=== PATIENT | female | born 1990 | race Caucasian/White ===

== ENCOUNTER 2017-05-08 10:45 | Emergency (ER) | payer SELFPAY ==
[~2017-05-08] VITALS: Ht 160 cm; Wt 70.4 kg
[~2017-05-08 10:45] MED LIST: DEXT15SY3
[2017-05-08 11:01] VITALS: BP 103/60
[2017-05-08] MEDS ORDERED: CefTRIAXone SODIUM 1 GM/VIAL IM ONE (12:15)
[2017-05-08] MEDS ORDERED: ONDANSETRON HCL 4 MG TABLET PO ONE (12:15)
[2017-05-08] MEDS ORDERED: LIDOCAINE HCL/PF 1% 2 ML VIAL IM ONE (12:15)
[2017-05-08] MEDS ORDERED: KETOROLAC TROMETHAMINE 30 MG/ML VIAL IM ONE (12:30)
== END 2017-05-08 12:53 | disposition home or self-care (01) ==
LOC: EMS 10:47
DX: J03.80 Acute tonsillitis due to other specified organisms (principal); Z88.2 Allergy status to sulfonamides
CPT/HCPCS: 96372; 99284; J0696; J1885; J3490; Q0162

== ENCOUNTER 2018-06-09 13:30 | Emergency (ER) | payer MEDICAID ==
[~2018-06-09] VITALS: Ht 157.5 cm; Wt 81.8 kg
[2018-06-09] MEDS ORDERED: KETOROLAC TROMETHAMINE 30 MG/ML VIAL IM ONE (15:30)
[2018-06-09] MEDS ORDERED: CefTRIAXone SODIUM 1 GM in DEXTROSE 5%-WATER 10 ML IV ONE (15:45)
[2018-06-09] MEDS ORDERED: AZITHROMYCIN 250 MG TABLET PO ONE (15:45)
[2018-06-09 15:53] LABS: BASOPHILS % (AUTO) 1.1 % (0.0-2.0); EOSINOPHILS % (AUTO) 6.5 % (1.0-6.0); HEMATOCRIT 37.6 % (36-46); HEMOGLOBIN 12.6 g/dL (12.0-16.0); LYMPHOCYTES % (AUTO) 15.5 % (22.0-44.0); MEAN CORPUSCULAR HEMOGLOBIN 30.7 pg (26.0-34.0); MEAN CORPUSCULAR HGB CONC 33.5 G/dL (31.0-37.0); MEAN CORPUSCULAR VOLUME 92 fL (80-100); MONOCYTES # (AUTO) 0.4 K/uL (0.1-1.0); NEUTROPHILS # (AUTO) 4.5 K/uL (1.8-7.7); NEUTROPHILS % (AUTO) 70.9 % (40.0-70.0); PLATELET COUNT (AUTO) 369 K/uL (150-450); RED BLOOD CELL COUNT(AUTO) 4.11 MIL/uL (4.00-5.20); RED CELL DISTRIBUTION WIDTH 13.4 % (11.5-14.5)
[2018-06-09 16:05] LABS: ANION GAP 5 mmol/L (8-16); CALCIUM, TOTAL 8.4 mg/dL (8.8-10.5); CARBON DIOXIDE 29 mmol/L (22-29); CHLORIDE 103 mmol/L (98-107); CREATININE 0.71 mg/dL (0.60-1.30); GLOMERULAR FILTR. RATE CALC > 60 mL/min (>60); GLUCOSE,RANDOM 102 mg/dL (70-110); POTASSIUM 3.9 mmol/L (3.5-5.1); SODIUM SERUM 137 mmol/L (136-145); UREA NITROGEN, BLOOD 7 mg/dL (7-18)
[2018-06-09 16:11] LABS: ALANINE AMINOTRANSFERASE 468 U/L (12-78); ALBUMIN 2.9 g/dL (3.4-5.0); ALKALINE PHOSPHATASE 328 U/L (46-116); ASPARTATE AMINOTRANSFERASE 178 U/L (15-37); BILIRUBIN,TOTAL 0.4 mg/dL (0.1-1.0); C-REACTIVE PROTEIN QUANT 3.31 mg/dL (0.00-0.30); TOTAL PROTEIN, SERUM 7.7 g/dL (6.4-8.2)
[2018-06-09 16:41] LABS: APPEARANCE,URINE CLOUDY (CLEAR); GLUCOSE, URINE (UA) NEGATIVE (NEGATIVE); KETONES,URINE NEGATIVE (NEGATIVE); LEUKOCYTE ESTERASE ,URINE MODERATE (NEGATIVE); NITRATE,URINE POSITIVE (NEGATIVE); OCCULT BLOOD,URINE TRACE (NEGATIVE); PH,URINE 6.5 (5.0-8.0); PROTEIN,URINE NEGATIVE (NEGATIVE)
[2018-06-09 16:42] LABS: BILIRUBIN,URINE PRELIM. POSITIVE (NEGATIVE)
[2018-06-09 16:45] LABS: SQUAMOUS EPITHELIAL CELL,UR Many /LPF (None Seen)
[2018-06-09 16:47] LABS: RBC,URINE 0-2 /HPF (0-2)
[2018-06-09 16:48] LABS: BACTERIA,URINE Moderate /HPF (None Seen)
[2018-06-09] MEDS ORDERED: PENICILLIN G BENZATHINE LA 2,400,000 UNITS/4 ML SYRINGE IM ONE (18:15)
[2018-06-09] MEDS ORDERED: SODIUM CHLORIDE 0.9% 500 ML IV ONE (18:30)
[2018-06-09 21:04] VITALS: BP 116/58
[2018-06-11 14:24] LABS: HIV 1-2 SCREEN 4TH GEN W/RFLX Non Reactive (Non Reactive)
== END 2018-06-09 21:14 | disposition home or self-care (01) ==
LOC: EMS 13:31
DX: A53.9 Syphilis, unspecified (principal); N39.0 Urinary tract infection, site not specified; L03.031 Cellulitis of right toe; Z72.51 High risk heterosexual behavior; Z88.2 Allergy status to sulfonamides; Z59.0 Homelessness
CPT/HCPCS: 36415; 73630; 80053; 81001; 81025; 85025; 86140; 86592; 86593; 86780; 87070; 87077; 87086; 87186; 87205; 87255; 87389; 87430; 96365; 96366; 96372; 99285; J0561; J0696; J1885; J7040; J7060

== ENCOUNTER 2018-09-29 12:45 | Emergency (ER) | payer SELFPAY ==
[~2018-09-29] VITALS: Ht 160 cm; Wt 77.3 kg
[2018-09-29] MEDS ORDERED: KETOROLAC TROMETHAMINE 30 MG/ML VIAL IM ONE (15:30)
[2018-09-29 17:15] VITALS: BP 127/72
== END 2018-09-29 17:18 | disposition home or self-care (01) ==
LOC: EMS 12:46
DX: H66.91 Otitis media, unspecified, right ear (principal); Z88.2 Allergy status to sulfonamides

== ENCOUNTER 2019-12-03 15:05 | Observation (INO) | payer MEDICAID ==
[~2019-12-03] VITALS: Ht 160 cm; Wt 86.4 kg
[2019-12-03 16:20] VITALS: BP 129/61
[2019-12-03 17:28] LABS: AMPHET/METH SCREEN,URINE NEGATIVE (NEGATIVE); BARBITURATE SCREEN, URINE NEGATIVE (NEGATIVE); BENZODIAZEPINES SCREEN,URINE NEGATIVE (NEGATIVE); CANNABINOID SCREEN,URINE POSITIVE (NEGATIVE); COCAINE SCREEN,URINE NEGATIVE (NEGATIVE); METHADONE SCREEN, URINE NEGATIVE (NEGATIVE); OPIATE SCREEN,URINE NEGATIVE (NEGATIVE)
[2019-12-03 17:29] LABS: PHENCYCLIDINE SCREEN,URINE NEGATIVE (NEGATIVE)
== END 2019-12-03 17:00 | disposition home or self-care (01) ==
LOC: EMS 15:06 → 4S 15:40
PROVIDERS: ADMIT Obstetrics & Gynecology; ATTEND Obstetrics & Gynecology
DX: O26.892 Other specified pregnancy related conditions, second trimester (principal); R10.9 Unspecified abdominal pain; Z3A.27 27 weeks gestation of pregnancy
CPT/HCPCS: 80307 ×8; 81001; 99284; G0378

== ENCOUNTER 2020-01-26 18:20 | Observation (INO) | payer MEDICAID ==
[~2020-01-26] VITALS: Ht 162.6 cm; Wt 91.6 kg
[2020-01-26] MEDS ORDERED: LIDOCAINE/PF 1% 2 ML VIAL IM ONE (19:45)
[2020-01-26] MEDS ORDERED: CefTRIAXone SODIUM 250 MG/VIAL IM ONE (19:45)
[2020-01-26] MEDS ORDERED: AZITHROMYCIN 250 MG TABLET PO ONE (19:45)
[2020-01-26 20:23] VITALS: BP 110/60
== END 2020-01-26 20:23 | disposition home or self-care (01) ==
LOC: 4S 18:20
PROVIDERS: ADMIT Obstetrics & Gynecology; ATTEND Obstetrics & Gynecology
DX: O99.353 Diseases of the nervous system complicating pregnancy, third trimester (principal); F41.9 Anxiety disorder, unspecified; Z3A.35 35 weeks gestation of pregnancy
CPT/HCPCS: 59025; 81001; 96372; G0378; J0696; J3490

== ENCOUNTER 2020-02-21 17:00 | Observation (INO) | payer MEDICAID ==
[~2020-02-21] VITALS: Ht 162.6 cm; Wt 93.4 kg
[2020-02-21 17:04] VITALS: BP 108/61
[2020-02-21] MEDS ORDERED: ACET-66 PO (17:06)
== END 2020-02-21 17:35 | disposition home or self-care (01) ==
LOC: 4S 17:00
PROVIDERS: ADMIT Obstetrics & Gynecology; ATTEND Obstetrics & Gynecology
DX: Z03.818 Encounter for observation for suspected exposure to other biological agents ruled out (principal); Z3A.38 38 weeks gestation of pregnancy; Z98.891 History of uterine scar from previous surgery
CPT/HCPCS: 59025; 81001; 87635; G0378

== ENCOUNTER 2020-02-21 18:02 | Inpatient (IN) | payer MEDICAID ==
[~2020-02-21] VITALS: Ht 160 cm; Wt 93.0 kg
[~2020-02-21 18:02] MED LIST changes: +ACET-66 PO; -DEXT15SY3
[2020-02-25] MEDS ORDERED: RINGERS SOLUTION,LACTATED 1,000 ML IV ONE (10:31)
[2020-02-25] MEDS ORDERED: METHYLERGONOVINE MALEATE 0.2 MG/ML VIAL IM ONE (10:45)
[2020-02-25] MEDS ORDERED: METOCLOPRAMIDE HCL 5 MG/ML 2 ML VIAL IVP ONE (10:45)
[2020-02-25] MEDS ORDERED: CITRIC ACID/SODIUM CITRATE 30 ML SOLUTION UDCUP PO ONE (10:45)
[2020-02-25 10:50] VITALS: BP 127/75
[2020-02-25 11:19] LABS: EOSINOPHILS % (AUTO) 1.2 % (1.0-6.0); HEMATOCRIT 36.8 % (36-46); HEMOGLOBIN 12.3 g/dL (12.0-16.0); LYMPHOCYTES # (AUTO) 1.8 K/uL (1.0-4.8); LYMPHOCYTES % (AUTO) 18.9 % (22.0-44.0); MEAN CORPUSCULAR HEMOGLOBIN 31.1 pg (26.0-34.0); MEAN CORPUSCULAR HGB CONC 33.4 G/dL (31.0-37.0); MEAN CORPUSCULAR VOLUME 93 fL (80-100); MONOCYTES # (AUTO) 0.3 K/uL (0.1-1.0); MONOCYTES % (AUTO) 3.7 % (2.0-9.0); NEUTROPHILS % (AUTO) 75.2 % (40.0-70.0); PLATELET COUNT (AUTO) 322 K/uL (150-450); RED BLOOD CELL COUNT(AUTO) 3.95 MIL/uL (4.00-5.20); RED CELL DISTRIBUTION WIDTH 13.2 % (11.5-14.5)
[2020-02-25] MEDS ORDERED: CeFAZolin 2 GM/DEXTROSE 50 ML IV ONE (11:46)
[2020-02-25] MEDS ORDERED: ACETAMINOPHEN 1000 MG/ISO-OSM 100 ML IV ONE (11:46)
[2020-02-25] MEDS ORDERED: FentaNYL CITRATE-PF 100 MCG/2 ML VIAL ONE (11:46)
[2020-02-25] MEDS ORDERED: MORPHINE SULFATE/PF 0.5 MG/ML 10 ML AMP ONE (11:46)
[2020-02-25] MEDS ORDERED: PHENYLEPHRINE HCL 10 MG/ML VIAL IVP ONE (12:00)
[2020-02-25] MEDS ORDERED: DEXAMETHASONE SOD PHOS 4 MG/ML VIAL IVP ONE (12:00)
[2020-02-25] MEDS ORDERED: ONDANSETRON HCL 4 MG/2 ML VIAL IVP ONE (12:00)
[2020-02-25] MEDS ORDERED: OXYTOCIN 10 UNITS/ML VIAL IM ONE (12:00)
[2020-02-25] MEDS ORDERED: KETOROLAC TROMETHAMINE 60 MG/2 ML VIAL IM ONE (12:00)
[2020-02-25] MEDS ORDERED: NALBUPHINE HCL 10 MG/ML VIAL IVP PRN ×3 (12:30)
[2020-02-25] MEDS ORDERED: MORPHINE SULFATE 10 MG/ML SYRINGE IVP PRN (12:30)
[2020-02-25] MEDS ORDERED: MEPERIDINE-PF 25 MG/ML VIAL IVP PRN (12:30)
[2020-02-25] MEDS ORDERED: NALOXONE HCL 0.4 MG/ML VIAL IVP PRN (12:30)
[2020-02-25] MEDS ORDERED: FentaNYL CITRATE-PF 100 MCG/2 ML VIAL IVP PRN ×2 (12:30)
[2020-02-25] MEDS ORDERED: ONDANSETRON HCL 4 MG/2 ML VIAL IVP PRN ×2 (12:30)
[2020-02-25] MEDS ORDERED: DiphenhydrAMINE HCL 50 MG/ML VIAL IVP PRN ×2 (12:30)
[2020-02-25] MEDS ORDERED: OXYTOCIN 30 UNITS/LACT RINGERS 500 ML IV ONE (12:58)
[2020-02-25] MEDS ORDERED: OxyCODONE HCL/ACETAMINOPHEN 5-325 MG TABLET PO PRN ×2 (13:00)
[2020-02-25] MEDS ORDERED: LANOLIN 7 GM OINTMENT TP PRN (13:00)
[2020-02-25] MEDS: RINGERS SOLUTION,LACTATED 1,000 ML IV SCH ×2 (14:19→20:28)
[2020-02-25] MEDS ORDERED: OXYGEN THERAPY IH SCH ×3 (20:00)
[2020-02-25] MEDS: KETOROLAC TROMETHAMINE 30 MG/ML VIAL IVP SCH (20:25)
[2020-02-25] MEDS: ACETAMINOPHEN 1000 MG/ISO-OSM 100 ML IV SCH (20:29)
[2020-02-26] MEDS: KETOROLAC TROMETHAMINE 30 MG/ML VIAL IVP SCH (02:04)
[2020-02-26] MEDS ORDERED: ACETAMINOPHEN 1000 MG/ISO-OSM 100 ML IV ONE (04:58)
[2020-02-26] MEDS: ACETAMINOPHEN 1000 MG/ISO-OSM 100 ML IV SCH (05:05)
[2020-02-26] MEDS ORDERED: INFLUENZA VIRUS VACCINE QVS 2019-20 (3YR+)/PF 60 MCG/0.5 ML SYRINGE IM ONE (07:00)
[2020-02-26 07:19] LABS: BASOPHILS % (AUTO) 0.4 % (0.0-2.0); EOSINOPHILS % (AUTO) 0.3 % (1.0-6.0); HEMATOCRIT 33.8 % (36-46); HEMOGLOBIN 11.2 g/dL (12.0-16.0); LYMPHOCYTES # (AUTO) 2.9 K/uL (1.0-4.8); LYMPHOCYTES % (AUTO) 18.5 % (22.0-44.0); MEAN CORPUSCULAR HEMOGLOBIN 31.1 pg (26.0-34.0); MEAN CORPUSCULAR HGB CONC 33.2 G/dL (31.0-37.0); MEAN CORPUSCULAR VOLUME 94 fL (80-100); MONOCYTES # (AUTO) 0.6 K/uL (0.1-1.0); MONOCYTES % (AUTO) 3.9 % (2.0-9.0); NEUTROPHILS # (AUTO) 12.3 K/uL (1.8-7.7); NEUTROPHILS % (AUTO) 76.9 % (40.0-70.0); PLATELET COUNT (AUTO)-OB 322 K/uL (150-450); RED BLOOD CELL COUNT(AUTO) 3.61 MIL/uL (4.00-5.20); RED CELL DISTRIBUTION WIDTH 13.3 % (11.5-14.5)
[2020-02-26] MEDS: MAGNESIUM HYDROXIDE SUSPENSION 30 ML UDCUP PO SCH ×2 (11:20→21:10)
[2020-02-27] MEDS: IBUPROFEN 800 MG TABLET PO PRN ×2 (02:11→09:46)
[2020-02-27] MEDS: MAGNESIUM HYDROXIDE SUSPENSION 30 ML UDCUP PO SCH (09:46)
[2020-02-27] MEDS ORDERED: IBUP-2071 PO (13:14)
[2020-02-27] MEDS ORDERED: DOCU-275 PO (13:15)
[2020-02-27] MEDS ORDERED: FERR-89 PO (13:15)
== END 2020-02-27 14:05 | disposition home or self-care (01) | DRG 540 ==
LOC: 4S 02-25 10:30 → OBSVTOIN 02-25 10:30
PROVIDERS: ADMIT Obstetrics & Gynecology; ATTEND Obstetrics & Gynecology
PROC: 10D00Z1 Extraction of Products of Conception, Low, Open Approach (ICD-10-PCS; principal; 2020-02-25)
PROC: 3E02340 Introduction of Influenza Vaccine into Muscle, Percutaneous Approach (ICD-10-PCS; 2020-02-26)
DX: O34.211 Maternal care for low transverse scar from previous cesarean delivery (principal); Z23 Encounter for immunization; Z37.0 Single live birth; Z3A.39 39 weeks gestation of pregnancy; Z88.2 Allergy status to sulfonamides
CPT/HCPCS: 86592; 86762; 86850; 86900; 86901; 87081; 87340; 90686; J0131; J0690; J1100; J1885; J2274; J2370; J2405; J2590; J3010; J7120

== ENCOUNTER 2025-02-09 12:46 | Emergency (ER) | payer MEDICAID, OTHER ==
[~2025-02-09] VITALS: Ht 157.5 cm; Wt 75.0 kg
[~2025-02-09 12:46] MED LIST changes: -ACET-66 PO; +DOCU-385 PO; +FERR325T27 PO; +IBUP-1493 PO
[2025-02-09 13:03] VITALS: BP 103/57; PULSE 79; RESP 18; TEMP 98.6; O2SAT 99
[2025-02-09 13:55] LABS: COVID AG,FIA SOURCE NASAL SWAB
[2025-02-09 14:16] LABS: INFLUENZA TYPE A NEGATIVE FOR TYPE A (NEGATIVE); INFLUENZA TYPE B NEGATIVE FOR TYPE B (NEGATIVE); SARS-COV2 (COVID) ANTIGEN,FIA Negative (Negative)
[2025-02-09] MEDS: ACETAMINOPHEN/CODEINE 300-30 MG TABLET PO ONE (16:57)
[2025-02-09] MEDS ORDERED: AMOX-457 PO (17:22)
[2025-02-09] MEDS ORDERED: BENZ-227 PO (17:23)
[2025-02-09] MEDS ORDERED: ALBU18HF12 IH (17:23)
[2025-02-09] MEDS: AMOX TR/POT CLAV 875 MG/125 MG TABLET PO ONE (17:36)
== END 2025-02-09 17:36 | disposition home or self-care (01) ==
LOC: EMS 13:00
DX: J18.9 Pneumonia, unspecified organism (principal); I10 Essential (primary) hypertension; Z88.2 Allergy status to sulfonamides; Z20.822 Contact with and (suspected) exposure to COVID-19
CPT/HCPCS: 71045; 87804; 99284

== ENCOUNTER 2025-02-11 18:46 | Inpatient (IN) | payer OTHER ==
[~2025-02-11] VITALS: Ht 157.5 cm; Wt 75.0 kg
[~2025-02-11 18:46] MED LIST changes: +ALBU18HF12 IH; +AMOX-457 PO; +BENZ-227 PO
[2025-02-11 20:48] LABS: BASOPHILS % (AUTO) 0.3 % (0.0-2.0); HEMATOCRIT 36.3 % (36-46); HEMOGLOBIN 12.3 g/dL (12.0-16.0); LYMPHOCYTES # (AUTO) 1.2 K/uL (1.0-4.8); LYMPHOCYTES % (AUTO) 9.9 % (22.0-44.0); MEAN CORPUSCULAR HEMOGLOBIN 32.1 pg (26.0-34.0); MEAN CORPUSCULAR HGB CONC 33.9 G/dL (31.0-37.0); MEAN CORPUSCULAR VOLUME 95 fL (80-100); MONOCYTES # (AUTO) 0.2 K/uL (0.1-1.0); MONOCYTES % (AUTO) 1.9 % (2.0-9.0); NEUTROPHILS # (AUTO) 10.3 K/uL (1.8-7.7); PLATELET COUNT (AUTO) 394 K/uL (150-450); RED BLOOD CELL COUNT(AUTO) 3.83 MIL/uL (4.00-5.20); RED CELL DISTRIBUTION WIDTH 13.5 % (11.5-14.5); WHITE BLOOD COUNT (AUTO) 11.9 K/uL (4.5-11.0)
[2025-02-11 20:49] LABS: NEUTROPHILS % (AUTO) 86.9 % (40.0-70.0)
[2025-02-11 20:58] LABS: ANION GAP 14 mmol/L (8-16); CARBON DIOXIDE 25 mmol/L (22-29); CHLORIDE 97 mmol/L (98-107); CREATININE 0.67 mg/dL (0.60-1.30); GLOMERULAR FILTR. RATE CALC > 60 mL/min (>60); GLUCOSE,RANDOM 81 mg/dL (70-110); SODIUM SERUM 136 mmol/L (136-145); UREA NITROGEN, BLOOD 5 mg/dL (7-18)
[2025-02-11 20:59] LABS: COVID AG,FIA SOURCE NASAL SWAB
[2025-02-11 20:59] LABS: PROTHROMBIN TIME 10.7 SEC (9.4-11.6)
[2025-02-11 21:00] LABS: APPEARANCE,URINE CLEAR (CLEAR); BILIRUBIN,URINE NEGATIVE (NEGATIVE); COLOR,URINE COLORLESS (YELLOW); GLUCOSE, URINE (UA) NEGATIVE (NEGATIVE); LEUKOCYTE ESTERASE ,URINE NEGATIVE (NEGATIVE); NITRATE,URINE NEGATIVE (NEGATIVE); OCCULT BLOOD,URINE NEGATIVE (NEGATIVE); PROTEIN,URINE NEGATIVE (NEGATIVE); SPECIFIC GRAVITIY, URINE 1.003 (1.003-1.030); UROBILINOGEN,URINE <=1.0 mg/dL (<=1.0)
[2025-02-11 21:05] LABS: LACTIC ACID 1.3 mmol/L (0.4-2.0)
[2025-02-11 21:18] LABS: INFLUENZA TYPE A NEGATIVE FOR TYPE A (NEGATIVE); INFLUENZA TYPE B NEGATIVE FOR TYPE B (NEGATIVE); SARS-COV2 (COVID) ANTIGEN,FIA Negative (Negative)
[2025-02-11] MEDS: CefTRIAXone 1 GM/DEXTROSE 50 ML IV ONE (21:36)
[2025-02-11] MEDS: SODIUM CHLORIDE 0.9% 2,250 ML IV ONE (21:55)
[2025-02-11 23:45] VITALS: PULSE 98; RESP 18; RESP 22; O2SAT 100
[2025-02-11] MEDS: IPRATROPIUM BROMIDE 0.5 MG/2.5 ML NEB SOLUTION NEB ONE (23:45)
[2025-02-11] MEDS: ALBUTEROL SULFATE 2.5 MG/0.5 ML NEB SOLUTION NEB ONE (23:45)
[2025-02-12] VITALS (8 sets, daily range): BP systolic 101–135; BP diastolic 57–79; PULSE 78–99; RESP 18–30; TEMP 98.1–98.8; O2SAT 93–100
[2025-02-12] MEDS: ACETAMINOPHEN/CODEINE 300-30 MG TABLET PO ONE (00:38)
[2025-02-12] MEDS: AZITHROMYCIN 500 MG/NS 250 ML IV ONE (00:45)
[2025-02-12] MEDS: ZOLPIDEM TARTRATE 5 MG TABLET PO ONE (01:40)
[2025-02-12] MEDS: ONDANSETRON 4 MG TABLET PO ONE (01:40)
[2025-02-12] MEDS ORDERED: MAGNESIUM HYDROXIDE SUSPENSION 30 ML UDCUP PO PRN ×2 (10:30→15:30)
[2025-02-12] MEDS ORDERED: ALBUTEROL SULFATE 2.5 MG/0.5 ML NEB SOLUTION NEB PRN ×2 (10:30→15:30)
[2025-02-12] MEDS ORDERED: BISACODYL 10 MG RECTAL RECTAL SUPPOSITORY PR PRN ×2 (10:30→15:30)
[2025-02-12] MEDS ORDERED: ZOLPIDEM TARTRATE 5 MG TABLET PO PRN (10:30)
[2025-02-12] MEDS ORDERED: HYDROCODONE/ACETAMINOPHEN 5-325 MG TABLET PO PRN (10:30)
[2025-02-12] MEDS ORDERED: BENZONATATE 100 MG CAPSULE PO PRN (10:30)
[2025-02-12] MEDS ORDERED: ONDANSETRON HCL 4 MG/2 ML VIAL IVP PRN ×2 (10:30→15:30)
[2025-02-12] MEDS ORDERED: ACETAMINOPHEN 325 MG TABLET PO PRN ×2 (10:30→15:30)
[2025-02-12] MEDS ORDERED: IPRATROPIUM BROMIDE 0.5 MG/2.5 ML NEB SOLUTION NEB PRN ×2 (10:30→15:30)
[2025-02-12] MEDS: MethylPREDNISolone SOD SUCC 125 MG/2 ML VIAL IVP SCH (11:32)
[2025-02-12] MEDS: MORPHINE SULFATE 2 MG/ML SYRINGE IVP PRN (11:40)
[2025-02-12] MEDS ORDERED: ALBUTEROL SULFATE 2.5 MG/0.5 ML NEB SOLUTION NEB SCH (14:00)
[2025-02-12] MEDS ORDERED: IPRATROPIUM BROMIDE 0.5 MG/2.5 ML NEB SOLUTION NEB SCH (14:00)
[2025-02-12] MEDS: HEPARIN SODIUM,PORCINE 5,000 UNITS/ML VIAL SQ SCH (15:19)
[2025-02-12] MEDS: BENZONATATE 100 MG CAPSULE PO SCH (15:20)
[2025-02-12] MEDS ORDERED: MORPHINE SULFATE 2 MG/ML SYRINGE IVP PRN (15:30)
[2025-02-12] MEDS ORDERED: HEPARIN SODIUM,PORCINE 5,000 UNITS/ML VIAL SQ SCH (16:00)
[2025-02-12] MEDS ORDERED: AZITHROMYCIN 500 MG/NS 250 ML IV SCH (16:00)
[2025-02-12] MEDS ORDERED: BENZONATATE 100 MG CAPSULE PO SCH (16:00)
[2025-02-12] MEDS ORDERED: CefTRIAXone 1 GM/DEXTROSE 50 ML IV SCH (17:00)
[2025-02-12] MEDS: FERROUS SULFATE 325 MG EC TABLET PO SCH (17:41)
[2025-02-12] MEDS ORDERED: MethylPREDNISolone SOD SUCC 125 MG/2 ML VIAL IVP SCH (18:00)
[2025-02-12] MEDS: ALBUTEROL SULFATE 2.5 MG/0.5 ML NEB SOLUTION NEB SCH (20:10)
[2025-02-12] MEDS: IPRATROPIUM BROMIDE 0.5 MG/2.5 ML NEB SOLUTION NEB SCH (20:10)
[2025-02-12] MEDS: GuaiFENesin SR 600 MG ER TABLET PO SCH (20:35)
[2025-02-12] MEDS: CefTRIAXone 1 GM/DEXTROSE 50 ML IV SCH (20:36)
[2025-02-12] MEDS ORDERED: SODIUM CHLORIDE 0.9% 500 ML IV ONE (20:41)
[2025-02-12] MEDS ORDERED: DOCUSATE SODIUM 100 MG CAPSULE PO SCH (21:00)
[2025-02-12] MEDS ORDERED: GuaiFENesin SR 600 MG ER TABLET PO SCH (21:00)
[2025-02-12] MEDS: DOCUSATE SODIUM 100 MG CAPSULE PO SCH (21:00)
[2025-02-12] MEDS: AZITHROMYCIN 500 MG/NS 250 ML IV SCH (21:55)
[2025-02-12] MEDS: ZOLPIDEM TARTRATE 5 MG TABLET PO PRN (23:09)
[2025-02-13 04:54] VITALS: BP 111/71; PULSE 74; RESP 18; TEMP 97.5; O2SAT 98
[2025-02-13 07:32] LABS: BASOPHILS % (AUTO) 0.1 % (0.0-2.0); EOSINOPHILS % (AUTO) 0 % (1.0-6.0); HEMATOCRIT 38.8 % (36-46); LYMPHOCYTES # (AUTO) 0.9 K/uL (1.0-4.8); MEAN CORPUSCULAR HEMOGLOBIN 31.7 pg (26.0-34.0); MEAN CORPUSCULAR HGB CONC 33.5 G/dL (31.0-37.0); MEAN CORPUSCULAR VOLUME 95 fL (80-100); MONOCYTES # (AUTO) 0.1 K/uL (0.1-1.0); MONOCYTES % (AUTO) 1.1 % (2.0-9.0); NEUTROPHILS # (AUTO) 12.1 K/uL (1.8-7.7); PLATELET COUNT (AUTO) 470 K/uL (150-450); WHITE BLOOD COUNT (AUTO) 13.2 K/uL (4.5-11.0)
[2025-02-13 07:37] LABS: NEUTROPHILS % (AUTO) 91.8 % (40.0-70.0)
[2025-02-13] MEDS: PANTOPRAZOLE SODIUM 40 MG DR TABLET PO SCH (07:53)
[2025-02-13 08:26] VITALS: BP 108/60; PULSE 61; RESP 19; TEMP 98.2; O2SAT 97
[2025-02-13] MEDS ORDERED: PANTOPRAZOLE SODIUM 40 MG DR TABLET PO SCH (09:00)
[2025-02-13 09:07] LABS: ANION GAP 11 mmol/L (8-16); CALCIUM, TOTAL 9.6 mg/dL (8.8-10.5); CARBON DIOXIDE 24 mmol/L (22-29); CHLORIDE 101 mmol/L (98-107); CREATININE 0.67 mg/dL (0.60-1.30); GLOMERULAR FILTR. RATE CALC > 60 mL/min (>60); GLUCOSE,RANDOM 171 mg/dL (70-110); POTASSIUM 3.6 mmol/L (3.5-5.1); SODIUM SERUM 136 mmol/L (136-145); UREA NITROGEN, BLOOD 6 mg/dL (7-18)
[2025-02-13 11:28] VITALS: BP 120/66; PULSE 82; RESP 18; TEMP 98.3; O2SAT 97
[2025-02-13 16:11] LABS: AMPHET/METH SCREEN,URINE NEGATIVE (NEGATIVE); BARBITURATE SCREEN, URINE NEGATIVE (NEGATIVE); BENZODIAZEPINES SCREEN,URINE NEGATIVE (NEGATIVE); CANNABINOID SCREEN,URINE POSITIVE (NEGATIVE); COCAINE SCREEN,URINE NEGATIVE (NEGATIVE); METHADONE SCREEN, URINE NEGATIVE (NEGATIVE); OPIATE SCREEN,URINE NEGATIVE (NEGATIVE); PHENCYCLIDINE SCREEN,URINE NEGATIVE (NEGATIVE)
[2025-02-13 16:13] LABS: ALCOHOL, URINE DRUG SCREEN NEGATIVE (NEGATIVE)
[2025-02-13 16:16] VITALS: BP 121/65; PULSE 69; RESP 19; TEMP 98.2; O2SAT 97
[2025-02-13 20:24] VITALS: BP 116/84; PULSE 59; RESP 19; TEMP 98.6; O2SAT 97
[2025-02-13] MEDS: HYDROCODONE/ACETAMINOPHEN 5-325 MG TABLET PO PRN (20:47)
[2025-02-14 00:28] VITALS: BP 121/80; PULSE 67; RESP 23; TEMP 98.4; O2SAT 97
[2025-02-14 04:47] VITALS: BP 112/73; PULSE 67; RESP 20; TEMP 97.9; O2SAT 97
[2025-02-14 06:57] LABS: BASOPHILS % (AUTO) 0.2 % (0.0-2.0); EOSINOPHILS % (AUTO) 0 % (1.0-6.0); HEMOGLOBIN 11.8 g/dL (12.0-16.0); LYMPHOCYTES # (AUTO) 1.1 K/uL (1.0-4.8); LYMPHOCYTES % (AUTO) 4.4 % (22.0-44.0); MEAN CORPUSCULAR HEMOGLOBIN 31.1 pg (26.0-34.0); MEAN CORPUSCULAR HGB CONC 32.7 G/dL (31.0-37.0); MEAN CORPUSCULAR VOLUME 95 fL (80-100); MONOCYTES # (AUTO) 0.4 K/uL (0.1-1.0); MONOCYTES % (AUTO) 1.5 % (2.0-9.0); PLATELET COUNT (AUTO) 468 K/uL (150-450); RED BLOOD CELL COUNT(AUTO) 3.78 MIL/uL (4.00-5.20); RED CELL DISTRIBUTION WIDTH 13.8 % (11.5-14.5); WHITE BLOOD COUNT (AUTO) 24.5 K/uL (4.5-11.0)
[2025-02-14 07:11] LABS: ANION GAP 7 mmol/L (8-16); CARBON DIOXIDE 28 mmol/L (22-29); CHLORIDE 104 mmol/L (98-107); POTASSIUM 3.8 mmol/L (3.5-5.1); SODIUM SERUM 139 mmol/L (136-145)
[2025-02-14 07:13] LABS: NEUTROPHILS % (AUTO) 93.9 % (40.0-70.0)
[2025-02-14 07:20] LABS: CALCIUM, TOTAL 9.1 mg/dL (8.8-10.5); CREATININE 0.58 mg/dL (0.60-1.30); GLOMERULAR FILTR. RATE CALC > 60 mL/min (>60); GLUCOSE,RANDOM 139 mg/dL (70-110); UREA NITROGEN, BLOOD 8 mg/dL (7-18)
[2025-02-14 08:38] VITALS: BP 122/78; PULSE 71; RESP 19; TEMP 98.2; O2SAT 99
[2025-02-14 11:54] VITALS: BP 120/81; PULSE 65; RESP 17; TEMP 98.2; O2SAT 97
== END 2025-02-14 13:06 | disposition left against medical advice (07) | DRG 720 ==
LOC: EDUNIT# 18:46 → EMS 18:51 → EDH 02-12 06:56 → 5S 02-12 09:45
PROVIDERS: ADMIT Internal Medicine; ATTEND Internal Medicine
DX: A41.9 Sepsis, unspecified organism (principal); J96.91 Respiratory failure, unspecified with hypoxia; J18.9 Pneumonia, unspecified organism; J45.901 Unspecified asthma with (acute) exacerbation; I10 Essential (primary) hypertension; Z20.822 Contact with and (suspected) exposure to COVID-19; F15.90 Other stimulant use, unspecified, uncomplicated; T38.0X5A Adverse effect of glucocorticoids and synthetic analogues, initial encounter; J06.9 Acute upper respiratory infection, unspecified; J98.4 Other disorders of lung; Z88.2 Allergy status to sulfonamides; Y92.89 Other specified places as the place of occurrence of the external cause; Z53.29 Procedure and treatment not carried out because of patient's decision for other reasons
CPT/HCPCS: 71045; 71250; 80048; 80307; 81003; 83605; 84145; 84703; 85025; 85610; 87040; 87804; 93005; 94640; 99285; G0378; J0456; J0696; J1644; J2270; J2919; J7030; J7040; Q0162; 36415-L1; 36415-TC; J7613